=== PATIENT | male | born 1965 | race Caucasian/White ===

== ENCOUNTER 2017-09-27 08:34 | Emergency (ER) | payer BC ==
[~2017-09-27] VITALS: Ht 177.8 cm; Wt 102.2 kg
[2017-09-27 08:42] VITALS: BP 115/56; PULSE 80; RESP 20; TEMP 99.1; O2SAT 96
[2017-09-27] MEDS ORDERED: ATOR40TA16 PO (09:06)
[2017-09-27] MEDS ORDERED: TRAZ50TA12 PO (09:06)
[2017-09-27] MEDS ORDERED: LISI-519 PO (09:06)
[2017-09-27] MEDS ORDERED: ONDANSETRON ODT 4 MG TAB PO ONE (09:15)
--- NOTE | 2017-09-27 09:32 | PD ---
HPI Chief Complaint: GI Complaint Time Seen by Provider: 08:57 Travel History International Travel<30 days: No Contact w/Intl Traveler<30days: No Traveled to known affect area: No History of Present Illness HPI Patient is here visiting from [place]. Presents to the emergency department complaining of feeling weak and diarrhea since Tuesday upon arrival. Decreased appetite, states that his symptoms he drinks or eats something he has diarrhea. Diarrhea is described as being nonbloody with 5-6 episodes a day. No known sick contacts, no fever, no chest pain, no shortness of breath. Reporting chills, nausea, vomiting, epigastric abdominal pain. Last emesis was last night and it was his p.o. intake. PFSH Past Medical History Cardiovascular Problems: Yes High Cholesterol: Yes Hypertension: Yes Past Surgical History Cardiac Surgery: Yes (TRIPLE BYPASS 2004) Other Surgery: Yes (BERIACTRIC SX) Social History Alcohol Use: No Tobacco Use: No Substance Use: No Allergies-Medications (Allergen,Severity, Reaction): Coded Allergies: No Known Allergies (Unverified , 09/27/17) Reported Meds & Prescriptions Reported Meds & Active Scripts Active Lomotil (Diphenoxylate-Atropine) 2.5-0.025 Mg Tab 2 Tab PO Q6H PRN 3 Days Reported Trazodone (Trazodone HCl) 50 Mg Tab 50 Mg PO HS Atorvastatin (Atorvastatin Calcium) 40 Mg Tab 40 Mg PO HS Lisinopril 5 Mg Tab 5 Mg PO DAILY Review of Systems Except as stated in HPI: all other systems reviewed are Neg Physical Exam Narrative GENERAL: No acute distress SKIN: Focused skin assessment warm/dry. HEAD: Atraumatic. Normocephalic. EYES: Pupils equal and round. No scleral icterus. No injection or drainage. ENT: No nasal bleeding or discharge. Mucous membranes are dry. NECK: Trachea midline. No JVD. CARDIOVASCULAR: Regular rate and rhythm. No murmur appreciated. RESPIRATORY: No accessory muscle use. Clear to auscultation. Breath sounds equal bilaterally. GASTROINTESTINAL: Abdomen soft, epigastric and left lower quadrant tenderness, nondistended. Hepatic and splenic margins not palpable. MUSCULOSKELETAL: No obvious deformities. No clubbing. No cyanosis. No edema. NEUROLOGICAL: Awake and alert. No obvious cranial nerve deficits. Motor grossly within normal limits. Normal speech. PSYCHIATRIC: Appropriate mood and affect; insight and judgment normal. Data Data Last Documented VS Vital Signs Date Time Temp Pulse Resp B/P (MAP) Pulse Ox O2 Delivery O2 Flow Rate FiO2 09/27/17 14:15 96 Room Air 09/27/17 14:00 80 16 110/59 (76) 09/27/17 08:42 99.1 Orders Orders Complete Blood Count With Diff (09/27/17 09:05) Comprehensive Metabolic Panel (09/27/17 09:05) Lipase (09/27/17 09:05) Lactic Acid (09/27/17 09:05) Prothrombin Time / Inr (Pt) (09/27/17 09:05) Act Partial Throm Time (Ptt) (09/27/17 09:05) Ct Abd/Pel W Iv Contrast(Rout) (09/27/17 09:05) Iv Access Insert/Monitor (09/27/17 09:05) Ecg Monitoring (09/27/17 09:05) Oximetry (09/27/17 09:05) Ondansetron Odt (Zofran Odt) (09/27/17 09:15) Iohexol 350 Inj (Omnipaque 350 Inj) (09/27/17 10:53) Sodium Chlor 0.9% 1000 Ml Inj (Ns 1000 M (09/27/17 12:45) Sodium Chlor 0.9% 1000 Ml Inj (Ns 1000 M (09/27/17 12:45) Sodium Chlor 0.9% 1000 Ml Inj (Ns 1000 M (09/27/17 13:45) Stool Ova And Parasite Screen (09/27/17 13:51) Stool Wbc (Leukocytes) (09/27/17 13:51) Sodium Chloride 0.9% Flush (Ns Flush) (09/27/17 14:00) Enteric Path (Stool) (09/27/17 13:51) Labs Laboratory Tests Test 09/27/17 09:00 White Blood Count 8.5 TH/MM3 Red Blood Count 4.52 MIL/MM3 Hemoglobin 11.8 GM/DL Hematocrit 36.6 % Mean Corpuscular Volume 80.9 FL Mean Corpuscular Hemoglobin 26.2 PG Mean Corpuscular Hemoglobin Concent 32.3 % Red Cell Distribution Width 23.1 % Platelet Count 158 TH/MM3 Mean Platelet Volume 10.1 FL Neutrophils (%) (Auto) 86.4 % Lymphocytes (%) (Auto) 7.4 % Monocytes (%) (Auto) 5.7 % Eosinophils (%) (Auto) 0.2 % Basophils (%) (Auto) 0.3 % Neutrophils # (Auto) 7.4 TH/MM3 Lymphocytes # (Auto) 0.6 TH/MM3 Monocytes # (Auto) 0.5 TH/MM3 Eosinophils # (Auto) 0.0 TH/MM3 Basophils # (Auto) 0.0 TH/MM3 CBC Comment DIFF FINAL Differential Comment Prothrombin Time 10.9 SEC Prothromb Time International Ratio 1.1 RATIO Activated Partial Thromboplast Time 28.7 SEC Blood Urea Nitrogen 12 MG/DL Creatinine 1.14 MG/DL Random Glucose 134 MG/DL Total Protein 7.6 GM/DL Albumin 3.4 GM/DL Calcium Level 8.7 MG/DL Alkaline Phosphatase 86 U/L Aspartate Amino Transf (AST/SGOT) 17 U/L Alanine Aminotransferase (ALT/SGPT) 20 U/L Total Bilirubin 0.3 MG/DL Sodium Level 135 MEQ/L Potassium Level 3.5 MEQ/L Chloride Level 104 MEQ/L Carbon Dioxide Level 17.6 MEQ/L Anion Gap 13 MEQ/L Estimat Glomerular Filtration Rate 67 ML/MIN Lactic Acid Level 2.5 mmol/L Lipase 74 U/L MDM Medical Decision Making Medical Screen Exam Complete: Yes Emergency Medical Condition: Yes Interpretation(s) Labs: H&H slightly decreased: Lactate elevated Last Impressions Abdomen/Pelvis CT 09/27/17 0905 Signed Impressions: Service Date/Time: Wednesday, September 27, 2017 10:50 - CONCLUSION: 1. Nondistended fluid-filled colon with very subtle pericolonic stranding most prominently near the cecum and proximal ascending colon without colonic wall thickening. There also several subcentimeter right lower quadrant mesenteric lymph nodes likely reactive/infectious in etiology. Overall findings are most consistent with mild colitis, likely infectious in etiology. Differential considerations include inflammatory and unlikely ischemic colitis given patent mesenteric arteries. 2. Normal appendix. 3. Postsurgical features of prior gastric bypass surgery. 4. 6 cm exophytic right mid renal pole cyst containing thin septation, likely Bosniak 2 minimally complex cyst. 5. Prominent coronary artery calcifications. 6. Small bilateral gluteal soft tissue collections may be secondary to subcutaneous injections. Cholo Jay MD Differential Diagnosis Patient pancreatitis, gastroenteritis, colitis, Narrative Course Patient presents to the emergency department diarrhea, nausea, vomiting, abdominal pain check CBC, chemistry, lipase, CT scan abdomen and pelvis with IV contrast. Will give IV fluids and Zofran ODT. 1410: Patient given a total of 3 L IV normal saline in the ER. Stool specimen also sent for fecal leukocytes, culture, ova and parasites. Diagnosis Primary Impression: Colitis Patient Instructions: General Instructions Additional Instructions: 1. Drink plenty of fluids. 2. Return to the ER immediately for fever, vomiting , worsening abdominal pain, bloody diarrhea, or any new/worrisome/worsening symptoms. 3. Follow-up with primary care doctor in 24-48 hours. Med/Other Pt SpecificInfo: Prescription(s) given Scripts Diphenoxylate-Atropine (Lomotil) 2.5-0.025 Mg Tab 2 TAB PO Q6H Y for DIARRHEA for 3 Days, #24 TAB 0 Refills Prov: Rosa M Gomez MD 09/27/17 Disposition: 01 DISCHARGE HOME Condition: Stable Rosa M Gomez MD September 27, 2017 09:32
[2017-09-27 09:35] LABS: AUTOMATED NEUTROPHIL # 7.4 TH/MM3 (1.8-7.7); BASOPHIL % 0.3 % (0.0-2.0); EOSINOPHIL % 0.2 % (0.0-4.0); HEMATOCRIT 36.6 % (39.0-51.0); HEMOGLOBIN 11.8 GM/DL (13.0-17.0); LYMPH % 7.4 % (9.0-44.0); LYMPHOCYTE # 0.6 TH/MM3 (1.0-4.8); MEAN CELL VOLUME 80.9 FL (80.0-100.0); MEAN CORPUSCULAR HEMOGLOBIN 26.2 PG (27.0-34.0); MEAN CORPUSCULAR HGB CONC 32.3 % (32.0-36.0); MEAN PLATELET VOLUME 10.1 FL (7.0-11.0); MONO % 5.7 % (0.0-8.0); MONOCYTE # 0.5 TH/MM3 (0-0.9); NEUT % 86.4 % (16.0-70.0); PLATELET COUNT 158 TH/MM3 (150-450); RED BLOOD COUNT 4.52 MIL/MM3 (4.50-5.90); RED CELL DISTRIBUTION WIDTH 23.1 % (11.6-17.2); WHITE BLOOD COUNT 8.5 TH/MM3 (4.0-11.0)
[2017-09-27 09:52] LABS: INTERNATIONAL NORMALIZED RATIO 1.1 RATIO; PROTHROMBIN TIME - PATIENT 10.9 SEC (9.8-11.6)
[2017-09-27 10:34] LABS: ALBUMIN 3.4 GM/DL (3.4-5.0); ALKALINE PHOSPHATASE 86 U/L (45-117); ALT (GPT) 20 U/L (12-78); AST (GOT) 17 U/L (15-37); BLOOD UREA NITROGEN 12 MG/DL (7-18); CALCIUM 8.7 MG/DL (8.5-10.1); CREATININE 1.14 MG/DL (0.60-1.30); GLOMERULAR FILTRATION RATE 67 ML/MIN (>89); GLUCOSE,RANDOM 134 MG/DL (74-106); SODIUM (NA) 135 MEQ/L (136-145); TOTAL BILIRUBIN ADULT 0.3 MG/DL (0.2-1.0); TOTAL PROTEIN 7.6 GM/DL (6.4-8.2)
[2017-09-27 10:35] LABS: BICARBONATE 17.6 MEQ/L (21.0-32.0); CHLORIDE 104 MEQ/L (98-107)
[2017-09-27] MEDS ORDERED: IOHEXOL 350 MG/ML 10 ML VIAL (for RAD DIAG) IVCONTRAST ONE (10:53)
--- NOTE | 2017-09-27 11:18 | RADRPT ---
EXAM DATE/TIME: 09/27/2017 10:50 [facility] COMPARISON: No previous studies available for comparison. INDICATIONS : Left lower quadrant pain and diarrhea for 3 days IV CONTRAST: 95 cc Omnipaque 350 (iohexol) IV ORAL CONTRAST: No oral contrast ingested. RADIATION DOSE: 14.90 CTDIvol (mGy) MEDICAL HISTORY : Hypertension. SURGICAL HISTORY : Gastric bypass. ENCOUNTER: Initial ACUITY: 3 days PAIN SCALE: 7/10 LOCATION: Left lower quadrant TECHNIQUE: Volumetric scanning of the abdomen and pelvis was performed. Using automated exposure control and ad justment of the mA and/or kV according to patient size, radiation dose was kept as low as reasonably achievable to obtain optimal diagnostic quality images. DICOM format image data is available electro nically for review and comparison. FINDINGS: LOWER LUNGS: Prominent coronary calcifications. Lung bases are clear. LIVER: Homogeneous density without lesion. There is no dilation of the biliary tree. No calcified gallston es. SPLEEN: Normal size without lesion. PANCREAS: Within normal limits. KIDNEYS: 6 cm cyst in the posterior right kidney which measures fluid in density but contains a very thin hype rdense rim inferiorly. There is a small 3 mm calyceal calculus in the inferior pole of the left kidne y. Kidneys are otherwise symmetrical in size without hydronephrosis. ADRENAL GLANDS: Within normal limits. VASCULAR: There is no aortic aneurysm. BOWEL/MESENTERY: Postsurgical features of gastric bypass. Colon is nondistended and diffusely fluid-filled. There is s ubtle pericolonic stranding most prominently near the cecum and proximal ascending colon without colo odilia wall thickening. The appendix is visualized and normal in appearance. No pneumatosis or free air. Small bowel is unremarkable. No drainable fluid collection or free fluid. Multiple subcentimeter mes enteric nodes primarily in the right lower quadrant. ABDOMINAL WALL: Within normal limits. RETROPERITONEUM: There is no lymphadenopathy. BLADDER: No wall thickening or mass. REPRODUCTIVE: Within normal limits. INGUINAL: There is no lymphadenopathy or hernia. MUSCULOSKELETAL: Small density collections in the soft tissues of the gluteal region bilaterally more prominent in the right measuring up to 2.3 cm. No focal lytic or blastic bony lesions. CONCLUSION: 1. Nondistended fluid-filled colon with very subtle pericolonic stranding most prominently near the c ecum and proximal ascending colon without colonic wall thickening. There also several subcentimeter r ight lower quadrant mesenteric lymph nodes likely reactive/infectious in etiology. Overall findings a re most consistent with mild colitis, likely infectious in etiology. Differential considerations incl ude inflammatory and unlikely ischemic colitis given patent mesenteric arteries. 2. Normal appendix. 3. Postsurgical features of prior gastric bypass surgery. 4. 6 cm exophytic right mid renal pole cyst containing thin septation, likely Bosniak 2 minimally com plex cyst. 5. Prominent coronary artery calcifications. 6. Small bilateral gluteal soft tissue collections may be secondary to subcutaneous injections. Cholo Jay MD on September 27, 2017 at 11:01 Board Certified Radiologist. This report was verified electronically.
[2017-09-27] MEDS ORDERED: SODIUM CHLOR 0.9% 1000 ML INJ 1,000 ML IV ONE ×3 (12:45→13:45)
[2017-09-27 14:00] VITALS: BP 110/59; PULSE 80; RESP 16; O2SAT 97
[2017-09-27] MEDS ORDERED: SODIUM CHLORIDE 0.9% FLUSH 10 ML FLUSH IVF PRN (14:00)
[2017-09-27 14:15] VITALS: O2SAT 96
[2017-09-27] MEDS ORDERED: LOMO2.5T PO (14:18)
== END 2017-09-27 15:01 | disposition home or self-care (01) ==
LOC: NEPE 08:34
DX: K52.9 Noninfective gastroenteritis and colitis, unspecified (principal); E78.00 Pure hypercholesterolemia, unspecified; I10 Essential (primary) hypertension; R10.13 Epigastric pain
CPT/HCPCS: 74177; 80053; 83605; 83690; 85025; 85610; 85730; 87205; 87328; 87329; 87506; 96360; 96361; 99284; J7030; Q9967